=== PATIENT | male | born 1975 | race Caucasian/White ===

== ENCOUNTER → 2022-06-26 11:40 | Outpatient (CLI) | payer OTHER, SELFPAY ==
--- NOTE | ~2022-06-26 | XR_ITS ---
Right Hand Technique: PA, oblique, and lateral views were obtained. Clinical History: Third digit pain Findings: No acute fracture or dislocation is seen. Osseous alignment is anatomic. Joint spaces are p reserved. Soft tissues are unremarkable. Impression: Unremarkable right hand. Reviewed, dictated and finalized at location . Impression: Unremarkable right hand.
== END ==
PROVIDERS: PCP Physician Assistant Medical
DX: M79.644 Pain in right finger(s) (principal)
CPT/HCPCS: 73130

== ENCOUNTER 2024-01-20 00:19 | Day surgery (SDC) | payer OTHER, SELFPAY ==
[2024-01-01 08:50] VITALS: BMI 24.1
[2024-01-20 06:24] VITALS: BP 134/70; PULSE 81; RESP 18; TEMP 36.2; O2SAT 99
[2024-01-20] MEDS: LACTATED RINGERS 1,000 ML 150 ML IV CONT (06:37)
--- NOTE | 2024-01-20 07:11 | WPDANESEPPF ---
Anes - Initial Pre Proc Eval Procedure: Operation Date: 01/20/24 07:30 Proposed Procedures p Screening Colonoscopy - Darren Esquivel DO Date/Time: 01/20/24 07:11 Surgeon: Darren Esquivel DO Pre Op Diagnosis: Screening for malignant neoplasm of colon Patient Data Age: 49 Gender: M Height: 1.85 m Weight: 88.6 kg Last Vital Signs Temp 36.2 C L 01/20/24 06:24 Pulse 81 01/20/24 06:24 Resp 18 01/20/24 06:24 BP 134/70 01/20/24 06:24 Pulse Ox 99 01/20/24 06:24 O2 Del Method Room Air 01/20/24 06:24 Allergies Allergy/AdvReac Type Severity Reaction Status Date / Time No Known Allergies Allergy Verified 01/20/24 06:22 Home Medications Medication Instructions Recorded Confirmed Type rosuvastatin 10 mg tablet 10 mg PO DAILY #90 tabs 09/24/23 01/01/24 Rx Patient hx anesthesia problems: none Family hx anesthesia problems: none Results Review: All pre-operative results and documents have been reviewed as part of the pre-operative evaluation. [facility] Past Medical History Medical History Annual physical exam Hyperlipidemia Hypertriglyceridemia Surgical History Surgical History No history of previous surgery Family History Family History Grandparent Family history of cardiovascular disease Family history of malignant neoplasm of breast Father Hypertension Family history of elevated blood lipids Family history of malignant neoplasm of skin Mother Hypertension Social History Social History Social History: declined [facility] 10/17/23 Smoking status: Current some day smoker Tobacco type: cigars Additional smoking assessment comments: 4 cigars/week Alcohol intake: current Drinks per week: 4 Alcohol use details: Wine Substance use: never Substance use type: does not use Lack of Transportation: No Lack of Food: Never True Current Housing: I Have Housing Concerned About Future Housing: No Difficulty Paying Gas/Electric Bills: No Difficulty Paying for Meds: No Currently Unemployed: No Education: High School Diploma/GED Difficulty w/ Childcare or Family Care: No Living arrangements: with family Occupation/Education: occupation 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 Informed Consent: The patient's anesthetic plan and its attendant risks and benefits were discussed with the patient/family/POA. Questions were solicited and answers provided to the satisfaction of the patient/family/POA.
--- NOTE | 2024-01-20 07:36 | PM.IMHP ---
H&P: HPI History of Present Illness Date/Time: 01/20/24 07:36 Chief Complaint: Screening for colorectal cancer Narrative: 49 yo man presents for colonoscopy. Denies fam hx colon cancer. Denies hematochezia/melena. Review of Systems Review of Systems: All systems reviewed & are unremarkable except as noted in HPI and below Constitutional: Constitutional: Denies chills, Denies fever(s), Denies headache(s) and Denies weight loss Eyes: Eyes: Denies change in vision ENT: Denies dizziness, Denies headache(s), Denies neck mass and Denies throat swelling Cardiovascular: Cardiovascular: Denies chest pain, Denies lightheadedness and Denies dyspnea Respiratory: Respiratory: Denies cough, Denies dyspnea and Denies wheezing Gastrointestinal: Gastrointestinal: Denies abdominal pain, Denies change in bowel habits, Denies nausea and Denies vomiting Genitourinary: Genitourinary: Denies hematuria and Denies dysuria Musculoskeletal: Musculoskeletal: Reports as per HPI Integumentary/Breasts: Skin/Breast: Reports as per HPI Neurologic: Denies dizziness and Denies headache(s) Allergic/Immunologic: Allergic/Immunologic: Denies throat swelling and Denies wheezing PMFSH Past Medical History Medical History Annual physical exam Hyperlipidemia Hypertriglyceridemia Surgical History Surgical History No history of previous surgery Family History Family History Grandparent Family history of cardiovascular disease Family history of malignant neoplasm of breast Father Hypertension Family history of elevated blood lipids Family history of malignant neoplasm of skin Mother Hypertension Social History Social History Social History: declined [facility] 10/17/23 Smoking status: Current some day smoker Tobacco type: cigars Additional smoking assessment comments: 4 cigars/week Alcohol intake: current Drinks per week: 4 Alcohol use details: Wine Substance use: never Substance use type: does not use Lack of Transportation: No Lack of Food: Never True Current Housing: I Have Housing Concerned About Future Housing: No Difficulty Paying Gas/Electric Bills: No Difficulty Paying for Meds: No Currently Unemployed: No Education: High School Diploma/GED Difficulty w/ Childcare or Family Care: No Living arrangements: with family Occupation/Education: occupation 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 [employer] Spiritual care concerns: No Agree to blood products: Yes Meds Home Medications and Allergies Home Medications Medication Instructions Recorded Confirmed Type rosuvastatin 10 mg tablet 10 mg PO DAILY #90 tabs 09/24/23 01/01/24 Rx Allergies Allergy/AdvReac Type Severity Reaction Status Date / Time No Known Allergies Allergy Verified 01/20/24 06:22 Vital Signs Vital Signs - 24 hr 01/20/24 06:24 Temperature 97.2 F L Pulse Rate 81 Respiratory Rate 18 Blood Pressure 134/70 Pulse Oximetry 99 Oxygen Delivery Room Air Exam Const: General: no acute distress and alert Orientation/consciousness: patient oriented x3 HENMT: Head: normocephalic and atraumatic Ears: hearing grossly normal bilaterally Face/Nose/Sinus: Normal nares present Mouth: Yes Normal oral and palatal mucosa present Eyes: Periorbital: periorbital findings normal Sclera: sclerae normal EOM: EOMs intact bilaterally Neck: Neck: normal visual inspection, no lymphadenopathy and trachea midline Chest: Chest palpation & inspection: normal inspection of the chest Resp: Effort & Inspection: normal respiratory effort Auscultation: clear to auscultation bilaterally Cardio: Jugular venous distension: no JVD Rate: regular rate Rhythm: regular rhythm Heart sounds: S1 normal heart sound present and S2 normal heart sound present Peripheral pulses: Peripheral pulses 2+ throughout GI: Inspection: normal to inspection GI Palp: Yes Soft to palpation, No Tenderness to palpation present (GI), No Guarding due to palpation present (GI) and No Rebound tenderness present Percussion: Yes normal to percussion Auscultation: normal bowel sounds : General: Yes no CVA tenderness Back/Spine/Pelvis: Back: no CVA tenderness Neuro: General: patient oriented x3, no focal motor deficits and CN's II-XI intact bilaterally Cognition (Neuro): normal cognition Speech: normal speech Motor exam (neuro): 5/5 motor strength present throughout Extrem: General: capillary refill normal and no clubbing, cyanosis or edema Assessment and Plan Assessment and plan (1) Screening for colorectal cancer: Code(s): Z12.11 - Encounter for screening for malignant neoplasm of colon; Z12.12 - Encounter for screening for malignant neoplasm of rectum Status: Acute Assessment and Plan: I have recommended colonoscopy. I have discussed the procedure, risks, benefits, and alternatives. Questions were answered. Patient is agreeable to proceed.
--- NOTE | 2024-01-20 07:36 | SUR.PREOP ---
DR DOWNING NOTIFIED PT ATE [employer] AND [employer] MEAL YESTERDAY AT 1130, THEN HAD CLEAR LIQUIDS AFTER THAT AND TOOK BOWEL PREP, PT STATES STOOLS ARE CLEAR, DR DOWNING SAW PT, NO NEW ORDERS.
[2024-01-20 07:50] VITALS: BP 101/64; PULSE 76; RESP 18; O2SAT 95
[2024-01-20 08:00] VITALS: BP 111/63; PULSE 78; RESP 19; O2SAT 96
[2024-01-20 08:10] VITALS: BP 109/73; PULSE 74; RESP 17; O2SAT 99
== END 2024-01-20 08:20 | disposition home or self-care (01) ==
PROVIDERS: PCP Physician Assistant Medical; Visit Provider Surgery
PROC: 0DJD8ZZ Inspection of Lower Intestinal Tract, Via Natural or Artificial Opening Endoscopic (ICD-10-PCS; CPT 45378; principal; 2024-01-20 07:30)
DX: Z12.11 Encounter for screening for malignant neoplasm of colon (principal); E78.5 Hyperlipidemia, unspecified; F17.290 Nicotine dependence, other tobacco product, uncomplicated
CPT/HCPCS: 45378; J2003; J2704; J7120